=== PATIENT | female | born 1970 | race Caucasian/White ===

== ENCOUNTER 2019-09-02 11:27 | Emergency (ER) | payer BC ==
[~2019-09-02] VITALS: Ht 162.6 cm; Wt 59.0 kg
[2019-09-02 11:38] VITALS: Ht 162.6 cm; Wt 59.0 kg
[2019-09-02 12:48] LABS: BASOPHIL % 0.3 % (0-2); RED CELL DISTRIBUTION WIDTH 13.9 % (11.5-14.5)
[2019-09-02 12:58] LABS: PLATELET COUNT 579 x10^3mcL (130-400)
[2019-09-02 13:02] LABS: CALCIUM 9.2 mg/dL (8.5-10.1); CARBON DIOXIDE 29.7 mmol/L (21-32); CHLORIDE SERUM 100 mmol/L (98-107); CREATININE SERUM 0.7 mg/dL (0.6-1.0); GFR1 > 60 mL/min; GLUCOSE SERUM 99 mg/dL (74-106); POTASSIUM SERUM 3.7 mmol/L (3.5-5.1); SODIUM SERUM 139 mmol/L (136-145)
[2019-09-02 13:06] LABS: ALBUMIN 2.8 g/dL (3.4-5.0); ALKALINE PHOSPHATASE 129 U/L (46-116); ALT/SGPT 21 U/L (14-59); AST/SGOT 18 U/L (15-37); BILIRUBIN TOTAL 0.3 mg/dL (0.20-1.00); CHOLESTEROL 176 mg/dL (<200); CHOLESTEROL/HDL RATIO 6.1; HDL CHOLESTEROL 29 mg/dL (40-60); LIPASE 145 IU/L (73-393); TOTAL PROTEIN, SERUM 6.9 g/dL (6.4-8.2); TRIGLYCERIDES 167 mg/dL (<150)
[2019-09-02 13:16] LABS: T3 TOTAL 1.16 ng/mL
[2019-09-02 13:17] LABS: FREE T4 1.2 ng/dL (0.76-1.46); FREE THYROXINE INDEX 3.1 ug/dL (1.4-4.5); T4(THYROXINE) 9.4 ug/dL (4.7-13.3)
[2019-09-02 14:11] LABS: microscopic required? YES; urine erythrocyte TRACE (NEGATIVE)
[2019-09-02 14:38] LABS: AMPHETAMINE QUAL UR NONE DETECTED (See below)
[2019-09-02 15:45] VITALS: BP 118/73
== END 2019-09-02 15:55 | disposition short-term general hospital (02) ==
LOC: ED 11:27
PROVIDERS: Specialist
DX: I69.314 Frontal lobe and executive function deficit following cerebral infarction (principal); Z88.1 Allergy status to other antibiotic agents
CPT/HCPCS: 84439; G0480; J7030; Q0092